=== PATIENT | female | born 1955 | race Caucasian/White ===

== ENCOUNTER 2022-02-22 09:37 | Outpatient (CLI) | payer MEDICARE, OTHER, SELFPAY ==
--- NOTE | 2022-02-22 10:15 | CRLHL7_ITS ---
For Patients: As a result of the Cures Act, medical imaging exams and procedure reports are released immediately into your electronic medical record. You may view this report before your referring provider. If you have questions, please contact your health care provider. INDICATION: Dysphagia. TECHNIQUE: Single and double contrast esophagram. COMPARISON: April 02, 2019. FINDINGS: Stables very small Zenker`s diverticulum not causing any holdup of barium. There is a small esophageal hiatal hernia largely fixed without stricture, mass, or obstruction. A distal esophageal diverticulum described previously is not evident today. The previous identified mid and distal esophageal tertiary contractions are also not appreciated today. Reflux was identified in the recumbent position as well as the right and left lateral decubitus positions up to the mid high esophagus. Brief evaluation of the stomach and duodenum indicate that they are grossly unremarkable. 2.06 minutes fluoroscopy time utilized. IMPRESSION: 1. Small Zenker`s diverticulum unchanged. 2. Small largely fixed esophageal hiatal hernia. Reflux identified up to the high esophagus in the recumbent and right lateral as well as left lateral decubitus positions. 3. No definite evidence for esophageal dysmotility. No stricture, mass, or obstruction. Dictated by Balbir Oquendo MD @ 02/22/2022 11:09:17 AM (Electronically Signed)
== END 2022-02-22 09:38 | disposition home or self-care (01) ==
LOC: RAD 09:39
PROVIDERS: PCP Family Medicine; Visit Provider Internal Medicine Gastroenterology
DX: R13.10 Dysphagia, unspecified (principal); K22.5 Diverticulum of esophagus, acquired; K44.9 Diaphragmatic hernia without obstruction or gangrene
CPT/HCPCS: 74221